=== PATIENT | female | born 1990 | race Two or more races ===

== ENCOUNTER 2019-07-28 08:06 | Outpatient (CLI) | payer OTHER | END 2019-07-28 08:16 | disposition home or self-care (01) | LOC: SONOGRAMA 08:06 | DX: E03.8 Other specified hypothyroidism (principal) ==

== ENCOUNTER 2019-12-15 09:15 | Outpatient (CLI) | payer OTHER | END 2019-12-15 09:19 | disposition home or self-care (01) | LOC: SONOGRAMA 09:15 | PROVIDERS: ATTEND Pathology Anatomic Pathology & Clinical Pathology | DX: E04.8 Other specified nontoxic goiter (principal) ==